=== PATIENT | female | born 1995 | race Caucasian/White ===

== ENCOUNTER 2017-06-14 18:40 | Emergency (ER) | payer OTHER ==
[~2017-06-14] VITALS: Ht 165.1 cm; Wt 70.3 kg
[2017-06-14] MEDS ORDERED: IBUPROFEN 800800 M1 PO (21:26)
[2017-06-14 22:13] VITALS: BP 122/82
== END 2017-06-14 22:14 | disposition home or self-care (01) ==
LOC: ER 18:40
DX: S63.501A Unspecified sprain of right wrist, initial encounter (principal); V89.2XXA Person injured in unspecified motor-vehicle accident, traffic, initial encounter; Y93.I9 Activity, other involving external motion; Y92.89 Other specified places as the place of occurrence of the external cause; Y99.8 Other external cause status